=== PATIENT | male | born 1960 | race Caucasian/White ===

== ENCOUNTER 2022-03-13 13:32 | Emergency (ER) | payer BC, OTHER ==
[2022-03-13 13:41] VITALS: BP 156/98; PULSE 90; TEMP 97.4; BMI 32.5
[2022-03-13] MEDS ORDERED: ACETAMINOPHEN 325 MG TABLET (FP) PO ONE (15:23)
[2022-03-13] MEDS ORDERED: MAG HYDROX/AL HYDROX/SIMETH 30 ML UNIT-DOSE CUP PO ONE (15:23)
[2022-03-13] MEDS ORDERED: FAMOTIDINE 20 MG TABLET PO ONE (15:23)
[2022-03-13] MEDS ORDERED: FAMOTIDINE 20 MG TABLET ONE (15:50)
[2022-03-13] MEDS ORDERED: MAG HYDROX/AL HYDROX/SIMETH 30 ML UNIT-DOSE CUP ONE (15:51)
[2022-03-13] MEDS ORDERED: ACETAMINOPHEN 325 MG TABLET (FP) ONE (15:51)
[2022-03-13] MEDS ORDERED: SODIUM CHLORIDE 0.9% 500 ML INFUS.BAG IV ONE (15:57)
[2022-03-13 16:10] LABS: BASO % 0.5 % (0-2.0); EOS % 1.3 % (0-4.5); HEMATOCRIT 45.4 % (35.4-49); HEMOGLOBIN 15.3 GM/dL (11.7-16.9); LYMPH % 17.2 % (8-40); MCH 29.7 pg (25.7-33.7); MCHC 33.7 g/dl (32.0-35.9); MEAN PLT VOLUME 9.4 fl (7.5-11.1); MONO % 6.3 % (3.8-10.2); NEUT % 74.7 % (42.8-82.8); PLATELET COUNT 184 10^3/uL (134-434); RBC 5.16 M/mm3 (4.00-5.60); RDW 13.6 % (11.9-15.9); WHITE BLOOD COUNT 8.8 K/mm3 (4.0-10.0)
[2022-03-13 17:01] LABS: BLOOD UREA NITROGEN 15.2 mg/dL (7-18); CALCIUM 9.1 mg/dL (8.5-10.1); MAGNESIUM 2.3 mg/dL (1.8-2.4)
[2022-03-13 17:03] LABS: CREATININE 0.8 mg/dL (0.55-1.3)
[2022-03-13 17:04] LABS: PHOSPHOROUS 2.9 mg/dL (2.5-4.9)
[2022-03-13 17:05] LABS: BILIRUBIN,TOTAL 0.5 mg/dL (0.2-1); TOT PROT 7.1 g/dl (6.4-8.2)
== END 2022-03-13 19:31 | disposition home or self-care (01) ==
LOC: JER 13:32
DX: R42 Dizziness and giddiness (principal); M25.512 Pain in left shoulder
CPT/HCPCS: 36415; 80053; 83690; 83735; 84100; 84484; 85025; 93005; 93010; 99284-25

== ENCOUNTER 2022-03-31 13:00 | Emergency (ER) | payer BC, OTHER ==
[2022-03-31 14:01] VITALS: PULSE 74; BMI 33.2
[2022-03-31 15:36] LABS: HEMOGLOBIN 16.8 G/dL (11.7-16.9); RBC 5.37 10^6/uL (4.00-5.60); WHITE BLOOD COUNT 11.1 10^3/uL (4.0-10.8)
[2022-03-31 15:37] LABS: HEMATOCRIT 47.3 % (35.4-49); MCH 31.2 pg (25.7-33.7); MCHC 35.4 g/dl (32.0-35.9); MEAN PLT VOLUME 10.2 fl (7.5-11.1); PLATELET COUNT 209.3 10^3/uL (134-434); RDW 13.8 % (11.9-15.9)
[2022-03-31 15:46] LABS: ALBUMIN 4.6 g/dl (3.4-5.0); BILIRUBIN,TOTAL 0.6 mg/dl (0.2-1); CALCIUM 10.1 mg/dl (8.5-10); TOT PROT 7.7 g/dl (6.4-8.2)
[2022-03-31 16:21] LABS: PLATELET ESTIMATE ADEQUATE
[2022-03-31 17:30] VITALS: BP 130/82; TEMP 98.4
== END 2022-03-31 18:06 | disposition home or self-care (01) ==
LOC: FER 13:00
DX: R53.1 Weakness (principal); R06.00 Dyspnea, unspecified
CPT/HCPCS: 36415; 71046-TC-FY; 80053; 83880; 84484; 85025; 93005; 99285-25